=== PATIENT | male | born 1960 | race Caucasian/White ===

== ENCOUNTER → 2017-02-06 | Outpatient (CLI) | payer OTHER ==
[~2017-02-06] MED LIST: BUPR150CR PO; LOSA25TA PO
[2017-02-06 10:00] LABS: AUTOMATED NEUTROPHIL # 2.7 TH/MM3 (1.8-7.7); BASOPHIL % 0.5 % (0.0-2.0); EOSINOPHIL # 0.1 TH/MM3 (0-0.4); HEMO FLAGS DIFF FINAL; LYMPH % 31.4 % (9.0-44.0); LYMPHOCYTE # 1.7 TH/MM3 (1.0-4.8); MEAN CELL VOLUME 88.8 FL (80.0-100.0); MEAN CORPUSCULAR HEMOGLOBIN 30.7 PG (27.0-34.0); MEAN CORPUSCULAR HGB CONC 34.6 % (32.0-36.0); MONO % 15.2 % (0.0-8.0); NEUT % 50.9 % (16.0-70.0); PLATELET COUNT 198 TH/MM3 (150-450); RED BLOOD COUNT 4.84 MIL/MM3 (4.50-5.90); RED CELL DISTRIBUTION WIDTH 12.9 % (11.6-17.2); WHITE BLOOD COUNT 5.4 TH/MM3 (4.0-11.0)
[2017-02-06 10:01] LABS: BLOOD, URINE NEG (NEG); COMMENT (UR) CULT NOT INDICATED; CULTURE IF INDICATED CULT NOT INDICATED; GLUCOSE,URINE NEG (NEG); KETONE, URINE NEG (NEG); NITRITE,URINE NEG (NEG); PH, URINE 6.5 (5.0-8.5); URINE COLOR YELLOW (YELLW/STRAW)
[2017-02-06 10:07] LABS: APTT (PATIENT) 29.4 SEC (24.3-30.1); PROTHROMBIN TIME - PATIENT 10.6 SEC (9.8-11.6)
--- NOTE | 2017-02-06 10:20 | RADRPT ---
EXAM DATE/TIME: 02/06/2017 09:55 [place] COMPARISON: No previous studies available for comparison. INDICATIONS : Evaluate for pneumonia, pneumothorax or communicable disease. Pre op polypectomy. MEDICAL HISTORY : None. SURGICAL HISTORY : None. ENCOUNTER: Initial ACUITY: 1 day PAIN SCORE: 0/10 LOCATION: Bilateral chest FINDINGS: PA and lateral views of the chest demonstrate the lungs to be symmetrically aerated without evidence of mass, infiltrate or effusion. The cardiomediastinal contours are unremarkable. Osseous structure s are intact. CONCLUSION: Normal examination. Jordan Parks MD on February 06, 2017 at 10:19 Board Certified Radiologist. This report was verified electronically.
[2017-02-06 10:22] LABS: ANION GAP 7 MEQ/L (5-15); AST (GOT) 26 U/L (15-37); BLOOD UREA NITROGEN 10 MG/DL (7-18); CHLORIDE 106 MEQ/L (98-107); GLOMERULAR FILTRATION RATE 81 ML/MIN (>89); GLUCOSE,FASTING 59 MG/DL (74-99); SODIUM (NA) 143 MEQ/L (136-145)
[2017-02-06 10:25] LABS: ALKALINE PHOSPHATASE 114 U/L (45-117); ALT (GPT) 28 U/L (12-78); TOTAL BILIRUBIN ADULT 0.4 MG/DL (0.2-1.0)
== END ==
LOC: CPRE 08:54
PROVIDERS: ATTEND Colon & Rectal Surgery
DX: Z01.811 Encounter for preprocedural respiratory examination (principal); Z01.812 Encounter for preprocedural laboratory examination; D12.8 Benign neoplasm of rectum
CPT/HCPCS: 36415; 71020; 80053; 81001; 82378; 85025; 85610; 85730

== ENCOUNTER → 2017-02-12 | Day surgery (SDC) | payer OTHER ==
[~2017-02-12] VITALS: Ht 170.2 cm; Wt 71.3 kg
[~2017-02-12] MED LIST changes: +ACETAMINOPHEN 1000 MG/100 ML VIAL IV ONE; +BUPIVACAINE/EPINEPHRINE 0.5% 50 ML VIAL ONE; +CHLORHEXIDINE GLUCONATE 2 % 1 PACK (2 CLOTHS) TOPICAL PRN; +DEXAMETHASONE SOD PHOS 4 MG/ML VIAL ONE; +DO NOT ADM ANY ANTICOAGULANT DRUGS PRN; +FAMOTIDINE 20 MG/2 ML VIAL ONE; +INSULIN HUMAN REGULAR 1,000 UNITS/10 ML VIAL SQ PRN; +KETOROLAC TROMETHAMINE 60 MG/2 ML (IM) VIAL IM ONE; +LACTATED RINGER'S 1000 ML IV PRN; +LIDOCAINE 0.5%/EPINEPHrine 1:200,000 SOLN 50 ML VIAL ONE; +LIDOCAINE 2% JELLY 30 ML TUBE ONE; +METOPROLOL TARTRATE 25 MG TAB PO PRN; +MIDAZOLAM HCL 2 MG/2 ML VIAL ONE; +MORPHINE SULFATE 4 MG/ML INJ IV PRN; +NALOXONE HCL 0.4 MG/ML AMP IV ONE; +NEOSTIGMINE 3 MG/3 ML SYR IV ONE; +ONDANSETRON HCL 4 MG/2 ML VIAL IV PRN; +ONDANSETRON HCL 4 MG/2 ML VIAL IV PUSH ONE; +POVIDONE IODINE 5% (ANTISEPSIS KIT) 4 APPLICATIONS EACH NARE PRN; +PROPOFOL 200 MG/20 ML AMP IV ONE; +SODIUM CHLORID 0.9% 500 ML IV PRN; +SODIUM CHLORIDE 0.9% FLUSH 10 ML FLUSH IV FLUSH PRN; +ceFAZolin INJ 1,000 MG VIAL IV ONE; +ePHEDrine/NS 25 MG/5 ML SYR IV ONE; +fentaNYL CITRATE 250 MCG/5 ML AMP ONE; +metroNIDAZOLE 500 MG INJ 100 ML IV ONE; +oxyCODONE/ACETAMINOPHEN 5 MG/325 MG TAB PO PRN
[2017-02-12 12:39] VITALS: BP 134/85; PULSE 74; RESP 16; TEMP 98.6; O2SAT 97
[2017-02-12 18:35] VITALS: BP 157/95; PULSE 104; RESP 20; TEMP 97.4; O2SAT 96
--- NOTE | 2017-02-13 13:33 | MP ---
cc: CHICO PRICE M.D., KATHLEEN M.D. DATE OF SURGERY: 02/12/2017 PREOPERATIVE DIAGNOSIS: Rectal polyp. DIAGNOSIS Rectal polyp. PROCEDURE Transanal polypectomy. SURGEON Jamey ANESTHESIA General per ET tube ESTIMATED BLOOD LOSS 100 cc OPERATIVE INDICATIONS The patient is a 66-year-old male who on recent colonoscopy was noted to have a large rectal polyp. OPERATIVE FINDINGS A large rectal polyp, which appeared quite benign. OPERATIVE COURSE: The patient was brought to the operating room and placed in the supine position. After induction of general anesthesia, the patient was placed in the prone jackknife position. All bony prominences were carefully padded and the skin of the buttocks was taped apart. The perineum was prepped and draped in the usual sterile fashion. The Mix bivalve was then placed, and the polyp was easily visualized anteriorly. The polyp was then slowly resected using electrocautery. It did break into two pieces, and appeared very benign and soft circumferentially. The defect was quite large and appeared to run from the anterior midline up and around the right side and to the posterior up higher, this was closed in an interrupted [id number] fashion, using 3-0 Vicryl. It was quite difficult to get to the upper part of the incision but I was ultimately able to finish the closure. Rigid sigmoidoscopy was then performed and the proximal rectum was patent. A dressing was then applied. All sponge, needle and instrument counts was correct and the patient was returned to the post anesthesia care in a stable addition. MD SAMAN Black/chandra /4:40 PM /1:25 PM [facility]
== END | disposition home or self-care (01) ==
LOC: HSDC 11:58
PROVIDERS: ATTEND Colon & Rectal Surgery
DX: D12.8 Benign neoplasm of rectum (principal); I10 Essential (primary) hypertension; J44.9 Chronic obstructive pulmonary disease, unspecified
CPT/HCPCS: 00902; 45171; 86850; 86900; 86901; 88305; J0131; J0690; J1100; J2250; J2310; J2405; J2710; J3010